=== PATIENT | female | born 1990 | race Caucasian/White ===

== ENCOUNTER 2016-12-01 10:55 | Emergency (ER) | payer MEDICAID ==
--- NOTE | 2016-12-01 11:16 | ED Physician Chart ---
Chief Complaint/HPI - Patient Information Date Seen:: 12/01/16 Time Seen:: 11:10 Chief Complaint:: Nausea with intermittent nonbloody loose stool since yesterday. History of Present Illness:: As above. Pt had transient vomiting with vomitus consists of partially digested food. No hematemesis. No fever or lightheadedness. Pt ate unusual food in a alliance party prior to onset of her gastrointestinal symptoms. No recent travel, antibiotic use, or ingestion of contaminated food or liquid. Pt tolerates clear liquid without problem. Allergies:: NKA Vitals:: see Nurse Note. Historian:: Patient Family MD/PCP:: [facility]. LMP:: 11/09/16 Review:: Nurse's Note Reviewed Review of Systems - Review of Systems General/Constitutional: No fever, No chills, No weight loss, No weakness, No diaphoresis, No edema, No loss of appetite Skin: No skin lesions, No rash, No bruising Head: No headache, No light-headedness Eyes: No loss of vision, No pain, No diplopia ENT: No earache, No nasal drainage, No sore throat, No tinnitus Neck: No neck pain, No swelling, No thyromegaly, No stiffness, No mass noted Cardio Vascular: No chest pain, No palpitations, No PND, No orthopnea, No edema Pulmonary: No SOB, No cough, No sputum, No wheezing GI: Nausea, Vomiting (transient.), Diarrhea (Nonbloody loose stool, see HPI.), No pain, No melena, No hematochezia, No constipation, No hematemesis G/U: No dysuria, No frequency, No hematuria Endocrine: No polyuria, No polydipsia Psychiatric: No prior psych history Hematopoietic: No bruising, No lymphadenopathy Allergic/Immuno: No urticaria, No angioedema Neurological: No syncope, No focal symptoms, No weakness, No paresthesia, No headache, No seizure, No dizziness, No confusion, No vertigo Past Medical History - Past Medical History Past Medical History: No significant medical hx Family History: Diabetes Melitus (PGM ), HTN (MGM, PGM) Social History: Non Smoker, No Alcohol, No Drug Use, , Employed, Other ( Lives with her .) Employment:: Salesperson. Surgical History: None Medication: None Physical Exam - Physical Examination General/Constitutional: Awake, Well-developed, well-nourished, Alert, No distress, GCS 15, Non-toxic appearing, Ambulatory Other Gen/Cons comments:: Breathes comfortably, speaks clearly, and ambulates without difficulty. Head: Atraumatic Eyes: Lids, conjuctiva normal, PERRL, EOMI Other Eyes comments:: Good tearing. Skin: Nl inspection, No rash, No skin lesions, No ecchymosis, Well hydrated, No lymphadenopathy ENMT: External ears, nose nl, Nasal exam nl, Lips, teeth, gums nl, Oropharynx nl , Tonsils nl Neck: Nontender, Full ROM w/o pain, No nuchal rigidity, No stridor Respiratory: Nl effort/Exclusion, Clear to Auscultation, No Wheeze/Rhonchi/Rales Cardio Vascular: RRR, No murmur, gallop, rubs, NL S1 S2 GI: No tenderness/rebounding/guarding, No organomegaly, No hernia, Normal BS's, Nondistended, No mass/bruits, No McBurney tenderness Other GI comments:: Soft. Extremities: No tenderness or effusion, Full ROM, normal strength in all extremities, No edema, Normal digits & nails Neuro/Psych: Alert/oriented (oriented x 3.), Judgement/insight normal, Mood normal, Normal gait, No focal deficits ED Septic Shock - . Is Septic Shock (SBP<90, OR Lactate>4 mmol\L) present?: No Reassessment (Disposition) - Reassessment Reassessment:: 1130 Pt remains stable without recurrent N/V/D. Pt requests to go home now and does not want further observation/management in hospital. Aftercare instructions given. Reassessment Condition:: Improved - Diagnosis Diagnosis:: Food intolerance. Doubt early viral gastroenteritis. Stable. - Aftercare/Follow up Instructions Aftercare/Follow-Up Instructions:: Refer to Discharge Instructions Notes:: Bedrest today. Clear liquid today. Advance diet starting tomorrow morning. Nausea/vomiting/Diarrhea instructions given. F/U with PCP at [facility] in one day for recheck. Return to ER immediately if condition worsens or if any further questions/problems. Medication Prescribed:: None - Patient Disposition Discharge/Transfer:: Home Time:: 11:30 Condition at Disposition:: Stable, Improved
== END 2016-12-01 11:45 | disposition home or self-care (01) ==
LOC: ER 10:55
DX: K90.49 Malabsorption due to intolerance, not elsewhere classified (principal)
CPT/HCPCS: Z7502

== ENCOUNTER 2017-01-20 13:17 | Emergency (ER) | payer MEDICAID ==
--- NOTE | 2017-01-20 13:39 | ED Physician Chart ---
Chief Complaint/HPI - Patient Information Date Seen:: 01/20/17 Time Seen:: 13:23 Chief Complaint:: rash History of Present Illness:: THIS IS A 26 YO FEMALE WITH THE SUDDEN ONSET OF A WHOLE BODY RASH EXCEPT FOR THE BACK. SHE DENIES BEING SICK PRIOR TO THE RASH COMING ON. SHE DENIES FEVER , COUGH AND SORE THROAT. SHE DENIES EATING ANY UNUSUAL FOODS OR MEDICATIONS. SHE DENIES DIABETES, HEART DISEASE AND HYPERTENSION. SHE DENIES HAVING A RASH LIKE THIS ONE BEFORE. Allergies:: Allergies Allergy/AdvReac Type Severity Reaction Status Date / Time No Known Allergies Allergy Verified 12/01/16 11:12 Historian:: Patient Review:: Nurse's Note Reviewed Review of Systems - Review of Systems General/Constitutional: No fever, No chills, No weight loss, No weakness, No diaphoresis, No edema, No loss of appetite Skin: Skin lesions, Rash, No rash, No bruising Head: No headache, No light-headedness Eyes: No loss of vision, No pain, No diplopia ENT: No earache, No nasal drainage, No sore throat, No tinnitus Neck: No neck pain, No swelling, No thyromegaly, No stiffness, No mass noted Cardio Vascular: No chest pain, No palpitations, No PND, No orthopnea, No edema Pulmonary: No SOB, No cough, No sputum, No wheezing GI: No nausea, No vomiting, No diarrhea, No pain, No melena, No hematochezia, No constipation, No hematemesis G/U: No dysuria, No frequency, No hematuria Musculoskeletal: No bone or joint pain, No back pain, No muscle pain Endocrine: No polyuria, No polydipsia Psychiatric: No prior psych history, No depression, No anxiety, No suicidal ideation Hematopoietic: No bruising, No lymphadenopathy Allergic/Immuno: No urticaria, No angioedema Neurological: No syncope, No focal symptoms, No weakness, No paresthesia, No headache, No seizure, No dizziness, No confusion, No vertigo Past Medical History - Past Medical History Obtainable: Yes Past Medical History: No significant medical hx Family History: Diabetes Melitus (GRANDPARENTS) Social History: Non Smoker, No Alcohol, No Drug Use Surgical History: None Psychiatricy History: None Medication: Reviewed Family Medical History - Family Member grandmother Hx Family Diabetes: Yes Physical Exam - Physical Examination General/Constitutional: Awake, Well-developed, well-nourished, Alert, No distress, GCS 15, Non-toxic appearing, Ambulatory Head: Atraumatic Eyes: Lids, conjuctiva normal, PERRL, EOMI Skin: Nl inspection, No skin lesions, No ecchymosis, Well hydrated, No lymphadenopathy Other Skin comments:: THERE IS A RASH THAT IS OVER THE ENTIRE BODY EXCEPT FOR THE BACK. THERE ARE RED PATCHES OF SLIGHTLY RAISED LESIONS ESPECIALLY ON THE FACE AND AT THE BASE OF THE NECK. NONE OF THE LESIONS ARE OPEN. ENMT: External ears, nose nl, Nasal exam nl, Lips, teeth, gums nl Neck: Nontender, Full ROM w/o pain, No JVD, No nuchal rigidity, No bruit, No mass, No stridor Respiratory: Nl effort/Exclusion, Clear to Auscultation, No Wheeze/Rhonchi/Rales Cardio Vascular: RRR, No murmur, gallop, rubs, NL S1 S2 GI: No tenderness/rebounding/guarding, No organomegaly, No hernia, Normal BS's, Nondistended, No mass/bruits, No McBurney tenderness : No CVA tenderness Extremities: No tenderness or effusion, Full ROM, normal strength in all extremities, No edema, Normal digits & nails Neuro/Psych: Alert/oriented, DTR's symmetric, Normal sensory exam, Normal motor strength, Judgement/insight normal, Mood normal, Normal gait, No focal deficits Misc: normal gait, Normal back, No paraspinal tenderness ED Septic Shock - . Is Septic Shock (SBP<90, OR Lactate>4 mmol\L) present?: No Reassessment (Disposition) - Reassessment Reassessment Condition:: Improved - Diagnosis Diagnosis:: ALLERGIC DERMATITIS - Aftercare/Follow up Instructions Aftercare/Follow-Up Instructions:: Counseled pt regarding lab results/diagnosis & need follow up, Refer to Discharge Instructions, Counseled pt & family regarding lab results/diagnosis & need follow up - Patient Disposition Discharge/Transfer:: Home Condition at Disposition:: Improved ED Discharge Plan - Patient Disposition Admit/Discharge/Transfer: PT DISCHARGED HOME Condition at Disposition: Improved Prescriptions: predniSONE [Deltasone] 10 mg PO DAILY #0 tab Instructions: Contact Dermatitis, [id number] Additional Instructions: Follow up with PMD in 1-3 days
[2017-01-20 14:22] LABS: % BASOPHILS 0.2 % (0.0-2.0); % EOSINOPHILS 0.3 % (0.0-5.0); % LYMPHOCYTES 33.3 % (20.0-50.0); % MONOCYTES 6.7 % (2.0-10.0); % NEUTROPHILS 59.5 % (40.0-80.0); HEMOGLOBIN 13.2 gm/dL (11.7-15.5); MEAN CELL VOLUME 86.8 fl (81-100); MEAN CORPUSCULAR HEMOGLOBIN 28.7 pg (27.0-31.0); MEAN CORPUSCULAR HGB CONC 33.1 pg (28.0-36.0); MEAN PLATELET VOLUME 9.4 fl; NEUTROPHILE ABSOLUTE 2.8 Th/cmm (1.8-8.0); PLATELET COUNT 130 Th/cmm (150-400); RED BLOOD COUNT 4.61 Mil/cmm (3.80-5.10); WHITE BLOOD COUNT 4.6 Th/cmm (4.8-10.8)
[2017-01-20 14:27] LABS: INR 0.96 (0.5-1.4); PROTHROMBIN TIME (TEST) 9.5 SECONDS (9.5-11.5)
[2017-01-20 14:29] LABS: ALB/GLOB RATIO 1.1 (1.0-1.8); ALKALINE PHOSPHATASE 57 U/L (34-104); ANION GAP 7.5 (7.0-16.0); BILIRUBIN,TOTAL 0.5 mg/dL (0.3-1.0); BUN - UREA NITROGEN 7 mg/dL (7-25); CALCIUM SERUM 8.8 mg/dL (8.6-10.3); CARBON DIOXIDE 24.5 mEq/L (21.0-31.0); CHLORIDE 105 mEq/L (98-107); CREATININE - SERUM 0.7 mg/dL (0.6-1.2); GLUCOSE 102 mg/dL (70-105); SGOT 22 U/L (13-39); SGPT/ALT 30 U/L (7-52); SODIUM SERUM 134 mEq/L (136-145)
[2017-01-20 14:30] LABS: CHOLESTEROL 127 mg/dL (<200); TRIGLYCERIDES 113 mg/dL (<150)
[2017-01-20 14:32] LABS: URINE COLOR YELLOW
[2017-01-20 14:33] LABS: URINE BILIRUBIN NEGATIVE (NEGATIVE); URINE GLUCOSE (UA) NEGATIVE (NEGATIVE); URINE KETONE 15 mg/dL (NEGATIVE)
[2017-01-20 14:34] LABS: URINE BLOOD NEGATIVE (NEGATIVE); URINE PROTEIN TRACE mg/dL (NEGATIVE); URINE UROBILINOGEN 0.2 E.U./dL (0.2 - 1.0)
[2017-01-20 14:35] LABS: URINE BACTERIA 1+ /hpf (NONE SEEN); URINE EPITHELIAL CELLS FEW /lpf (FEW); URINE RBC NONE SEEN /hpf (0-5); URINE WBC 0-2 /hpf (0-5)
== END 2017-01-20 14:55 | disposition home or self-care (01) ==
LOC: ER 13:17
DX: L23.9 Allergic contact dermatitis, unspecified cause (principal)
CPT/HCPCS: 99284; 96372; 36415; 84443; 85025; 85610; 81001; 80053; 80061; 87040 ×2; J2930; Z7502

== ENCOUNTER 2017-02-17 12:44 | Emergency (ER) | payer MEDICAID ==
--- NOTE | 2017-02-17 12:54 | ED Physician Chart ---
Chief Complaint/HPI - Patient Information Date Seen:: 02/17/17 Time Seen:: 12:50 Chief Complaint:: nausea and vomiting History of Present Illness:: 26-year-old female complains of acute, constant, moderate to severe, nausea and vomiting 2 days. Associated subjective fevers and headache. Denies any abdominal pain. Allergies:: Allergies Allergy/AdvReac Type Severity Reaction Status Date / Time No Known Allergies Allergy Verified 12/01/16 11:12 Historian:: Patient Review:: Nurse's Note Reviewed Review of Systems - Review of Systems Other: Complete system review otherwise unremarkable except as noted in history of present illness. Past Medical History - Past Medical History Past Medical History: No significant medical hx Family History: None Social History: Non Smoker, No Alcohol, No Drug Use, Other Surgical History: None Psychiatricy History: None Medication: None Family Medical History - Family Member grandmother Hx Family Diabetes: Yes Physical Exam - Physical Examination Other:: INITIAL VITAL SIGNS: Reviewed by me GENERAL: Alert and interactive. No acute distress HEAD: Head is normocephalic and atraumatic EYES: EOMI. PERRL. No scleral icterus. No conjunctival injection ENT: Moist mucous membranes. NECK: Supple. No masses. Full range of motion RESPIRATORY: No tachypnea. Clear breath sounds bilaterally. No wheezing, rales, or rhonchi CV: Regular rate and rhythm. No murmurs, rubs, or gallops ABDOMEN: Soft, non-distended, non-tender. No guarding. No rebound. No masses. EXTREMITIES: No deformity. No cyanosis. No edema. SKIN: Warm and dry. No obvious rashes. NEUROLOGIC: Alert and oriented. Face is symmetric. Speech is normal. Moves all extremities equally. Motor and sensory distally intact. Labs/Radiology/EKG Results - Lab Results Results: Lab Results 02/17/17 02/17/17 02/17/17 Range/Units 12:55 12:55 13:10 WBC 5.1 (4.8-10.8) Th/cmm RBC 4.83 (3.80-5.10) Mil/cmm Hgb 14.1 (11.7-15.5) gm/dL Hct 42.0 (35.0-45.0) % MCV 86.9 (81-100) fl MCH 29.1 (27.0-31.0) pg MCHC Differential 33.5 (28.0-36.0) pg RDW 12.4 (11.5-20.0) % Plt Count 106 L (150-400) Th/cmm MPV 9.0 fl Neutrophils % 49.2 (40.0-80.0) % Lymphocytes % 44.0 (20.0-50.0) % Monocytes % 6.1 (2.0-10.0) % Eosinophils % 0.1 (0.0-5.0) % Basophils % 0.6 (0.0-2.0) % Sodium (136-145) mEq/L Potassium (3.5-5.1) mEq/L Chloride (98-107) mEq/L Carbon Dioxide (21.0-31.0) mEq/L Anion Gap (7.0-16.0) BUN (7-25) mg/dL Creatinine (0.6-1.2) mg/dL Est GFR ( Amer) (>90) ml/min Est GFR (Non-Af Amer) ml/min BUN/Creatinine Ratio Glucose (70-105) mg/dL POC Glucose (70 - 105) MG/DL Whole Bld Lactic Acid (0.60-1.99) mmol/L Calcium (8.6-10.3) mg/dL Total Bilirubin (0.3-1.0) mg/dL AST (13-39) U/L ALT (7-52) U/L Alkaline Phosphatase (34-104) U/L Total Protein (6.0-8.3) gm/dL Albumin (3.7-5.3) gm/dL Globulin gm/dL Albumin/Globulin Ratio (1.0-1.8) Lipase (11-82) U/L Urine Source CLEAN C Urine Color YELLOW Urine Clarity SL. CLOUDY (CLEAR) Urine pH 7.0 Ur Specific Erin 1.020 (1.005-1.030) Urine Protein TRACE (NEGATIVE) mg/dL Urine Glucose (UA) NEGATIVE (NEGATIVE) mg/dL Urine Ketones NEGATIVE (NEGATIVE) mg/dL Urine Blood NEGATIVE (NEGATIVE) Urine Nitrate NEGATIVE (NEGATIVE) Urine Bilirubin NEGATIVE (NEGATIVE) Urine Urobilinogen 1.0 (0.2 - 1.0) E.U./dL Ur Leukocyte Esterase TRACE H (NEGATIVE) Urine RBC NONE SEEN (0-5) /hpf Urine WBC 2-5 (0-5) /hpf Ur Epithelial Cells MODERATE (FEW) /lpf Urine Bacteria NONE SEEN (NONE SEEN) /hpf Urine Test NEGATIVE 02/17/17 02/17/17 02/17/17 Range/Units 13:10 13:10 13:10 WBC (4.8-10.8) Th/cmm RBC (3.80-5.10) Mil/cmm Hgb (11.7-15.5) gm/dL Hct (35.0-45.0) % MCV (81-100) fl MCH (27.0-31.0) pg MCHC Differential (28.0-36.0) pg RDW (11.5-20.0) % Plt Count (150-400) Th/cmm MPV fl Neutrophils % (40.0-80.0) % Lymphocytes % (20.0-50.0) % Monocytes % (2.0-10.0) % Eosinophils % (0.0-5.0) % Basophils % (0.0-2.0) % Sodium 130 L (136-145) mEq/L Potassium 3.6 (3.5-5.1) mEq/L Chloride 97 L (98-107) mEq/L Carbon Dioxide 27.1 (21.0-31.0) mEq/L Anion Gap 9.5 (7.0-16.0) BUN 8 (7-25) mg/dL Creatinine 0.8 (0.6-1.2) mg/dL Est GFR ( Amer) > 60.0 (>90) ml/min Est GFR (Non-Af Amer) > 60.0 ml/min BUN/Creatinine Ratio 10.0 Glucose 95 (70-105) mg/dL POC Glucose (70 - 105) MG/DL Whole Bld Lactic Acid 0.87 (0.60-1.99) mmol/L Calcium 9.2 (8.6-10.3) mg/dL Total Bilirubin 0.8 (0.3-1.0) mg/dL AST 29 (13-39) U/L ALT 43 (7-52) U/L Alkaline Phosphatase 46 (34-104) U/L Total Protein 8.3 (6.0-8.3) gm/dL Albumin 4.4 (3.7-5.3) gm/dL Globulin 3.9 gm/dL Albumin/Globulin Ratio 1.1 (1.0-1.8) Lipase 11 (11-82) U/L Urine Source Urine Color Urine Clarity (CLEAR) Urine pH Ur Specific Erin (1.005-1.030) Urine Protein (NEGATIVE) mg/dL Urine Glucose (UA) (NEGATIVE) mg/dL Urine Ketones (NEGATIVE) mg/dL Urine Blood (NEGATIVE) Urine Nitrate (NEGATIVE) Urine Bilirubin (NEGATIVE) Urine Urobilinogen (0.2 - 1.0) E.U./dL Ur Leukocyte Esterase (NEGATIVE) Urine RBC (0-5) /hpf Urine WBC (0-5) /hpf Ur Epithelial Cells (FEW) /lpf Urine Bacteria (NONE SEEN) /hpf Urine Test 02/17/17 Range/Units 13:36 WBC (4.8-10.8) Th/cmm RBC (3.80-5.10) Mil/cmm Hgb (11.7-15.5) gm/dL Hct (35.0-45.0) % MCV (81-100) fl MCH (27.0-31.0) pg MCHC Differential (28.0-36.0) pg RDW (11.5-20.0) % Plt Count (150-400) Th/cmm MPV fl Neutrophils % (40.0-80.0) % Lymphocytes % (20.0-50.0) % Monocytes % (2.0-10.0) % Eosinophils % (0.0-5.0) % Basophils % (0.0-2.0) % Sodium (136-145) mEq/L Potassium (3.5-5.1) mEq/L Chloride (98-107) mEq/L Carbon Dioxide (21.0-31.0) mEq/L Anion Gap (7.0-16.0) BUN (7-25) mg/dL Creatinine (0.6-1.2) mg/dL Est GFR ( Amer) (>90) ml/min Est GFR (Non-Af Amer) ml/min BUN/Creatinine Ratio Glucose (70-105) mg/dL POC Glucose 90 (70 - 105) MG/DL Whole Bld Lactic Acid (0.60-1.99) mmol/L Calcium (8.6-10.3) mg/dL Total Bilirubin (0.3-1.0) mg/dL AST (13-39) U/L ALT (7-52) U/L Alkaline Phosphatase (34-104) U/L Total Protein (6.0-8.3) gm/dL Albumin (3.7-5.3) gm/dL Globulin gm/dL Albumin/Globulin Ratio (1.0-1.8) Lipase (11-82) U/L Urine Source Urine Color Urine Clarity (CLEAR) Urine pH Ur Specific Erin (1.005-1.030) Urine Protein (NEGATIVE) mg/dL Urine Glucose (UA) (NEGATIVE) mg/dL Urine Ketones (NEGATIVE) mg/dL Urine Blood (NEGATIVE) Urine Nitrate (NEGATIVE) Urine Bilirubin (NEGATIVE) Urine Urobilinogen (0.2 - 1.0) E.U./dL Ur Leukocyte Esterase (NEGATIVE) Urine RBC (0-5) /hpf Urine WBC (0-5) /hpf Ur Epithelial Cells (FEW) /lpf Urine Bacteria (NONE SEEN) /hpf Urine Test ED Septic Shock - . Is Septic Shock (SBP<90, OR Lactate>4 mmol\L) present?: No Reassessment (Disposition) - Reassessment Reassessment:: Patient's labs are essentially unremarkable. Discussed on oral findings with the patient. Patient did feel much improved. We did provide a prescription for Zofran. Recommended follow-up with a primary care physician with 1-2 days. Also gave her return to ER precautions. The patient understood and agreed with the plan. Reassessment Condition:: Improved - Diagnosis Diagnosis:: Nausea and vomiting - Aftercare/Follow up Instructions Aftercare/Follow-Up Instructions:: Counseled pt regarding lab results/diagnosis & need follow up, Refer to Discharge Instructions Medication Prescribed:: Zofran - Patient Disposition Discharge/Transfer:: Home Time:: 14:13 Condition at Disposition:: Improved ED Discharge Plan - Patient Disposition Instructions: Nausea and Vomiting, [id number]
[2017-02-17] MEDS ORDERED: Sodium Chloride 0.9% 1,000 ML IV ONE (12:56)
[2017-02-17] MEDS ORDERED: Prochlorperazine 5 mg/mL 2mL Vial IVP STA (12:56)
[2017-02-17] MEDS ORDERED: Dexamethasone Sodium Phos 4 mg/mL Vial IVP STA (12:56)
[2017-02-17] MEDS ORDERED: Dexamethasone Sodium Phos 10 mg/mL PF Vial ONE (13:02)
[2017-02-17] MEDS ORDERED: Prochlorperazine 5 mg/mL 2mL Vial ONE (13:05)
[2017-02-17 13:19] LABS: % BASOPHILS 0.6 % (0.0-2.0); % EOSINOPHILS 0.1 % (0.0-5.0); % MONOCYTES 6.1 % (2.0-10.0); % NEUTROPHILS 49.2 % (40.0-80.0); HEMOGLOBIN 14.1 gm/dL (11.7-15.5); MEAN CELL VOLUME 86.9 fl (81-100); MEAN CORPUSCULAR HEMOGLOBIN 29.1 pg (27.0-31.0); MEAN CORPUSCULAR HGB CONC 33.5 pg (28.0-36.0); NEUTROPHILE ABSOLUTE 2.6 Th/cmm (1.8-8.0); PLATELET COUNT 106 Th/cmm (150-400); RED BLOOD COUNT 4.83 Mil/cmm (3.80-5.10); RED CELL DISTRIBUTION WIDTH 12.4 % (11.5-20.0); WHITE BLOOD COUNT 5.1 Th/cmm (4.8-10.8)
[2017-02-17 13:26] LABS: URINE COLOR YELLOW
[2017-02-17 13:27] LABS: URINE BILIRUBIN NEGATIVE (NEGATIVE); URINE BLOOD NEGATIVE (NEGATIVE); URINE GLUCOSE (UA) NEGATIVE (NEGATIVE); URINE KETONE NEGATIVE (NEGATIVE); URINE PROTEIN TRACE mg/dL (NEGATIVE)
[2017-02-17 13:29] LABS: URINE BACTERIA NONE SEEN /hpf (NONE SEEN); URINE EPITHELIAL CELLS MODERATE /lpf (FEW); URINE RBC NONE SEEN /hpf (0-5)
[2017-02-17 13:39] LABS: ALB/GLOB RATIO 1.1 (1.0-1.8); ALKALINE PHOSPHATASE 46 U/L (34-104); ANION GAP 9.5 (7.0-16.0); BILIRUBIN,TOTAL 0.8 mg/dL (0.3-1.0); BUN - UREA NITROGEN 8 mg/dL (7-25); CALCIUM SERUM 9.2 mg/dL (8.6-10.3); CARBON DIOXIDE 27.1 mEq/L (21.0-31.0); CHLORIDE 97 mEq/L (98-107); CREATININE - SERUM 0.8 mg/dL (0.6-1.2); GLUCOSE 95 mg/dL (70-105); POTASSIUM SERUM 3.6 mEq/L (3.5-5.1); SGOT 29 U/L (13-39); SGPT/ALT 43 U/L (7-52); SODIUM SERUM 130 mEq/L (136-145)
== END 2017-02-17 14:45 | disposition home or self-care (01) ==
LOC: ER 12:44
DX: R11.2 Nausea with vomiting, unspecified (principal)
CPT/HCPCS: 99284; 96374; 96375; 36415; 36416; 82948; 83605; 85025; 81001; 81025; 83690; 80053; 87040 ×2; J1885; J2405; J0780; J7030; Z7502